=== PATIENT | male | born 1965 | race Caucasian/White ===

== ENCOUNTER 2017-03-12 09:30 | Emergency (ER) | payer BC ==
--- NOTE | 2017-03-12 10:08 | UC ---
Back Pain HPI - HPI Summary HPI Summary: 51 y/o male presents to the urgent care c/o mid lower back pain since yesterday. He went to work and pain increase with movement, specially bending. Today Pain now is 10/10, with movement and 6/10 constant at rest w/o any radiation and more spasm. Pt took advil 400mg PO last night which helped. Pt doesn't recall any injury. Pt denies fever, numbness or tingling over the lower extremities, denies urinary or fecal incontinence, saddle anesthesia, SOB , chest pain, N/V/D. - History of Current Complaint Chief Complaint: UCBackPain Stated Complaint: BACK PAIN Time Seen by Provider: 03/12/17 10:07 Hx Obtained From: Patient Onset/Duration: Gradual Onset, Lasting Days - 1 day, Still Present Timing: Constant, Lasting Days - 1 day Severity Initially: Moderate Severity Currently: Severe Pain Intensity: 10 - w/ movement Pain Scale Used: 0-10 Numeric Back Pain: Is Discrete @ - Lower back Character: Spasmodic Aggravating: Movement, Lifting, Bending, Nothing - sitting Associated Signs And Symptoms: Positive: Pain with Weight Bearing. Negative: Swelling, Redness, Bruising, Fever, Weakness, Numbness, Tingling, Abdominal Pain , Flank Pain, Bladder Incontinence, Bowel Incontinence - Risk Factors AAA Risk Factors: Negative TAD Risk Factors: Negative Cauda Equina Risk Factors: Negative Epidural Abscess Risk Factors: Negative - Allergies/Home Medications Allergies/Adverse Reactions: Allergies Allergy/AdvReac Type Severity Reaction Status Date / Time No Known Allergies Allergy Verified 03/12/17 09:36 PMH/Surg Hx/FS Hx/Imm Hx Previously Healthy: Yes Cardiovascular History: Hypertension - diet control - Surgical History Surgical History: None - Family History Known Family History: Positive: Hypertension, Diabetes - Social History Alcohol Use: Occasionally Substance Use Type: None Smoking Status (MU): Former Smoker When Did the Patient Quit Smoking/Using Tobacco: 1 year Review of Systems Constitutional: Negative Skin: Negative Eyes: Negative ENT: Negative Respiratory: Negative Cardiovascular: Negative Gastrointestinal: Negative Genitourinary: Negative Motor: Negative Neurovascular: Negative Musculoskeletal: Other: - Lower back pain with spasm Neurological: Negative Psychological: Negative Is Patient Immunocompromised?: No All Other Systems Reviewed And Are Negative: Yes Physical Exam Triage Information Reviewed: Yes Appearance: Well-Appearing, Well-Nourished, Pain Distress - mild pain distress standing up unabe to sit, Thin Vital Signs: Initial Vital Signs Temp 98.5 F 03/12/17 09:37 Pulse 78 03/12/17 09:37 Resp 16 03/12/17 09:37 BP 126/100 03/12/17 09:37 Vital Signs Reviewed: Yes Eye Exam: Normal Eyes: Positive: Conjunctiva Clear - PERRLA, EOMI fundi grossly normal ENT Exam: Normal ENT: Positive: Normal ENT inspection, Hearing grossly normal, Pharynx normal, TMs normal Neck exam: Normal Neck: Positive: Supple, Nontender, No Lymphadenopathy Respiratory Exam: Normal Respiratory: Positive: Chest non-tender, Lungs clear, Normal breath sounds, No respiratory distress Cardiovascular Exam: Normal Cardiovascular: Positive: RRR, No Murmur Abdominal Exam: Normal Abdomen Description: Positive: Nontender, No Organomegaly, Soft. Negative: CVA Tenderness (R), CVA Tenderness (L) Bowel Sounds: Positive: Present Musculoskeletal: Positive: Strength Intact, Other: - BACK: Patient walked into the urgent care room with symmetric ambulation, No signs of limping, antalgic, able to bear weight. No signs of trauma, No masses palpated. Point tenderness at the level of L3-L4, B/L paraspinal muscle tenderness at the same level. No CVAT, no flank ecchymosis . No sacroiliac notch tenderness, No saddle anesthesia.ROM: limited flexion/ extension/ lateral bending and rotation due to pain, Straight Leg Raise: unable to performe pt unable to lay on examining table due to pain. Patellar reflexes: brisk, symmetric Muscle strength lower extremities. Dorsiflexion/ plantar flexion of ankles. Heel/ toe walk. Lower extremities: Femoral, popliteal, posterior tibial, and dorsalis pedis pulses WNL. Pt decline DREW. Neurological Exam: Normal Psychological Exam: Normal Skin Exam: Normal Back Pain Course/Dx - Course Course Of Treatment: 51 y/o male presents to the urgent care c/o mid lower back pain since yesterday. He went to work and pain increase with movement, specially bending. Today Pain now is 10/10, with movement and 6/10 constant at rest w/o any radiation and more spasm. Pt took advil 400mg PO last night which helped. Pt doesn't recall any injury. Pt denies fever, numbness or tingling over the lower extremities, denies urinary or fecal incontinence, saddle anesthesia, SOB, chest pain, N/V/D. Hx obtained. UA ordered: negative. Pt given toradol Im inj for pain, Lumbosacral X-ray ordered: Impression:mild degenerative disc disease at L5-S1. Pt given Toradol Im inj for pain. Pt felt better, pain decrease. Pt with Back spasm. Pt Rx Flexeril Po and Naproxen PO for pain. I discussed all the findings and test results with the patient. Patient was instructed to return to the urgent care immediately if any of the symptoms return or worsens. Plan of care was discussed with the patient and understands and agrees. All questions were answered at patient satisfaction. Pt given PT and Orthopedic referral for f/u in 1 weeks if not improvement of symptoms. There were no further complaints or concerns. Pt left the clinic ambulating, A&OX3. - Differential Dx/Diagnosis Differential Diagnosis/HQI/PQRI: Arthritis, Fracture, Herniated Disc, Renal Colic, Strain, Sprain, Other - back spasm Provider Diagnoses: 1- Acute lower back pain with back spasm Discharge - Discharge Plan Condition: Stable Disposition: HOME Prescriptions: Cyclobenzaprine TAB* [Flexeril 10 MG TAB*] 10 mg PO TID PRN #15 tab PRN Reason: Spasms - Back Naproxen TAB* [Naprosyn 250 mg TAB*] 500 mg PO Q8H PRN #30 tab PRN Reason: Pain Patient Education Materials: Acute Low Back Pain (ED) Forms: *Work Release Referrals: [facility] [Outside] Evelio Lagunas MD [Medical Doctor] - 7 Days No Primary Care Phys,NOPCP [Primary Care Provider] - 7 Days Additional Instructions: 1-Please take Flexeril PO to alleviate back spasm. Wear a back support and avoid strenuous exercise, heavy lifting, or bending. Avoid driving 2-Please take Naproxen PO q6-8hrs prn as instructed after meals to alleviate pain and swelling. 3-If symptoms do not improve or worsen please return to the urgent care or f/u with your PCP or orthopedic in 1 week for further evaluation and treatment. 4- See PT referral for further evaluation and treatment.
[2017-03-12] MEDS ORDERED: Ketorolac INJ* 60 MG/2 ML VIAL IM ONE (10:26)
--- NOTE | 2017-03-12 11:45 | RAD ---
INDICATION: Sudden onset back pain after work the previous day COMPARISON: Similar radiograph May 04, 2010 TECHNIQUE: 5 views of the lumbar spine were obtained. FINDINGS: The vertebra are in normal alignment. No fracture is seen. Mild degenerative changes include loss of intervertebral disc height at multiple levels, most severely affecting L5/S1. IMPRESSION: Mild degenerative changes as described above not substantially changed since May 04, 2010 radiograph.
[2017-03-12 11:47] VITALS: BP 116/76
== END 2017-03-12 12:06 | disposition home or self-care (01) ==
LOC: UCEAST 09:30
DX: M62.830 Muscle spasm of back (principal); Z87.891 Personal history of nicotine dependence
CPT/HCPCS: 72110; 81003; 96372; 99212; G0463; J1885

== ENCOUNTER 2017-08-14 09:49 | Emergency (ER) | payer SELFPAY ==
[2017-08-14 12:59] VITALS: BP 124/75
--- NOTE | 2017-08-14 13:02 | UC ---
Laceration HPI - HPI Summary HPI Summary: 52 y/o female presents to the urgent care c/o Rt thumb laceration s/p cutting his thumb w/ metal at work this morning around 0730AM. Pt doesn't recall last Tetanus Shot. Bleeding stopped w/ pressure. Pain is 5/10. Pt can move thumb w/o any difficulty. Pt is Rt hand dominant. Pt denies numbness or tingling over the RT hand, SOb, chest pain, abdominal pain, N/V/D . - History Of Current Complaint Chief Complaint: UCLaceration Stated Complaint: THUMB LACERATION Time Seen by Provider: 08/14/17 12:57 Hx Obtained From: Patient Laceration Location: Finger - RT thumb laceration Mechanism Of Injury: Sharp Trauma Onset/Duration: Lasting Hours - 5hrs Severity: Mild Pain Intensity: 3 Pain Scale Used: 0-10 Numeric Aggravating Factors: Movement Related History: Occupational Injury, Dominant Hand Right - Allergies/Home Medications Allergies/Adverse Reactions: Allergies Allergy/AdvReac Type Severity Reaction Status Date / Time No Known Allergies Allergy Verified 08/14/17 10:47 Home Medications: Home Medications Glucosamine Sulfate Dipot Chlr [Glucosamine] 1 tab PO DAILY 08/14/17 [History Confirmed 08/14/17] Multivit-Mins/Iron/Folic/Lycop [Centrum Men's Tablet] 1 tab PO DAILY 08/14/17 [ History Confirmed 08/14/17] PMH/Surg Hx/FS Hx/Imm Hx Previously Healthy: Yes Cardiovascular History: Hypertension - diet control - Surgical History Surgical History: Yes Surgery Procedure, Year, and Place: testicular torsion - Family History Known Family History: Positive: Hypertension, Diabetes - Social History Occupation: Employed Full-time Lives: With Family Alcohol Use: Occasionally Substance Use Type: Marijuana Smoking Status (MU): Former Smoker When Did the Patient Quit Smoking/Using Tobacco: 1 year - Immunization History Most Recent Tetanus Shot: Out of date Review of Systems Constitutional: Negative Skin: Other - RT thumb laceration Eyes: Negative ENT: Negative Respiratory: Negative Cardiovascular: Negative Gastrointestinal: Negative Genitourinary: Negative Motor: Negative Neurovascular: Negative Musculoskeletal: Other: - RT thumb pain s/p laceration Neurological: Negative Psychological: Negative Is Patient Immunocompromised?: No All Other Systems Reviewed And Are Negative: Yes Physical Exam Triage Information Reviewed: Yes Vital Signs: Initial Vital Signs Temp 99.3 F 08/14/17 10:42 Pulse 61 08/14/17 10:42 Resp 20 08/14/17 10:42 BP 117/76 08/14/17 10:42 Pulse Ox 100 08/14/17 10:42 - Additional Comments Vital Signs Reviewed: Yes General: well developed, well nourished male sitting in the examining table w/ o any apparent distress Eye Exam: Normal Eyes: Positive: Conjunctiva Clear - PERRLA, EOMI, fundi grossly normal ENT: Positive: Normal ENT inspection, Hearing grossly normal, Pharynx normal, TMs normal Neck: Positive: Supple, Nontender, No Lymphadenopathy Respiratory: Positive: Chest non-tender, Lungs clear, Normal breath sounds, No respiratory distress Cardiovascular: Positive: RRR, No Murmur, Pulses Normal, Brisk Capillary Refill Abdomen Description: Positive: Nontender, No Organomegaly, Soft. Negative: CVA Tenderness (R), CVA Tenderness (L) Bowel Sounds: Positive: Present Musculoskeletal: Positive: Strength Intact, ROM Intact, No Edema Neurological: Positive: Alert, Muscle Tone Normal Psychological Exam: Normal Skin: Positive:Lateral side of RT Thumb at the level pf DIPJ w/ a superficial linear laceration about 1.0cm in size, bleeding stopped, mild tenderness on palpation, no swelling observed. FROM of RT Thumb adn all RT hand, sensation intact, capillary refill brisk, and pulses WNL. Laceration Repair - Laceration Repair 1 Description: Linear Laceration Size After Repair: Length (cm) - 1.0cm Modified For Repair: No Type Injection: Local Anesthesia Used: 1.0% Lido - 2ml Cleansing Completed Via Routine Prep: Yes Irrigation With Pressure Irrigation Device: Yes Closure Material: Sutures - 5 sutures Closure Method: Single Layer Suture Of: Skin, SQ Suture Type: Nylon - 5.0 Laceration Course/Dx - Course/Dx Course Of Treatment: 52 y/o female presents to the urgent care c/o Rt thumb laceration s/p cutting his thumb w/ metal at work this morning around 0730AM. Pt doesn't recall last Tetanus Shot. Bleeding stopped w/ pressure. Pain is 5/ 10. Pt can move thumb w/o any difficulty. Pt is Rt hand dominant. Pt denies numbness or tingling over the RT hand, SOb, chest pain, abdominal pain, N/V/D. Hx obtained. Pt w/ Lateral side of RT Thumb at the level pf DIPJ w/ a superficial linear laceration about 1.0cm in size, bleeding stopped, mild tenderness on palpation, no swelling observed on examiantion. LACERATION PROCEDURE NOTE: . Copious irrigation was done with saline by the nurse and the wound explored. There was no FB or deep structure injury noted. FROM of left forearm. procedure was explained and consent obtained, Timeout performed. The wound was anesthetized with 2 mL of 1% lido with good anesthesia. Sterile drape and prep were don. There were 5 sutures with 5.0 nylon type of suture. The length of the wound after closure was 1.0cm. No debridement done. Wound was covered bacitracin with sterile non adherent dressing. The Pt tolerated the procedure well without adverse effects. Neurovascular intact and FROM. Tdap ordered and applied by nurse. Pt advised to f/u suture removal in 10 days and if any signs of infection develop to immediately return to the urgent care of PCP for further management and treatment. Pt understood and agreed and left the clinic ambulating A&Ox3. - Differential Dx - Laceration/Wound Differental Diagnoses: Abrasion, Laceration, Puncture Wound, Tendon Laceration Provider Diagnoses: 1-Right thumb laceration repair Discharge - Discharge Plan Condition: Stable Disposition: HOME Prescriptions: Bacitracin OINTMENT* 1 applic TOPICAL BID #1 tube Patient Education Materials: Care For Your Stitches (DC), Laceration (ED) Referrals: Mitchell Lowry, PROSTHODONTIST [Primary Care Provider] - 1 Week Additional Instructions: 1-Please apply topical antibiotic over the wound. Keep wound clean and dry 2- F/u suture removal in 10-14 days days w/ your PCP or here at the urgent care. 3-Take Ibuprofen or Tylenol PO q6-8hrs prn for pain or swelling. 4- If you develop fever or redness around your finger despite the antibiotic please go to the ER immediately or return to the Urgent care.
[2017-08-14] MEDS ORDERED: Lidocaine 1% MPF* 2 ML VIAL INJ ONE (13:12)
[2017-08-14] MEDS ORDERED: Tetan/Diph/Pertus SYR(Tdap)* 0.5 ML SYR(BOOSTRIX) use SYR IM ONE (13:12)
== END 2017-08-14 14:10 | disposition home or self-care (01) ==
LOC: UCEAST 09:49
DX: S61.011A Laceration without foreign body of right thumb without damage to nail, initial encounter (principal); W26.8XXA Contact with other sharp object(s), not elsewhere classified, initial encounter; Y93.89 Activity, other specified; Y92.9 Unspecified place or not applicable; Y99.0 Civilian activity done for income or pay; Z23 Encounter for immunization; I10 Essential (primary) hypertension; F12.90 Cannabis use, unspecified, uncomplicated; Z87.891 Personal history of nicotine dependence
CPT/HCPCS: 12001; 90471; 90715; 99212; G0463

== ENCOUNTER 2017-09-24 12:48 | Emergency (ER) | payer BC ==
[2017-09-24 13:00] VITALS: BP 115/62
[2017-09-24] MEDS ORDERED: Ibuprofen TAB* 400 MG PO ONE (14:02)
--- NOTE | 2017-09-24 14:11 | UC ---
Back Pain HPI - History of Current Complaint Hx Obtained From: Patient Onset/Duration: Gradual Onset - had constipation for past week. that has resolved but started to have bilateral lower back pain that radiates to bilateral hips and lower abd over past few days. Today at work it got worse. 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 Negative: Numbness, Tingling, Bladder Incontinence, Bowel Incontinence <Art Oneill - Last Filed: 09/24/17 14:06> <Miguelina Franz - Last Filed: 09/24/17 18:04> - History of Current Complaint Chief Complaint: UCAbdominalPain Stated Complaint: ABD PAIN Time Seen by Provider: 09/24/17 13:49 - Allergies/Home Medications Allergies/Adverse Reactions: Allergies Allergy/AdvReac Type Severity Reaction Status Date / Time No Known Allergies Allergy Verified 09/24/17 13:00 Home Medications: Home Medications Ibuprofen [Goodsense Ibuprofen] 200 mg PO 09/24/17 [History] PMH/Surg Hx/FS Hx/Imm Hx Previously Healthy: Yes - Surgical History Surgical History: Yes Surgery Procedure, Year, and Place: testicular torsion - Family History Known Family History: Positive: Hypertension, Diabetes - Social History Occupation: Employed Full-time - Bakery Lives: With Family Alcohol Use: Rare Substance Use Type: Marijuana Substance Use Comment - Amount & Last Used: daily Smoking Status (MU): Former Smoker When Did the Patient Quit Smoking/Using Tobacco: 1 year - Immunization History Most Recent Tetanus Shot: Out of date <Art Oneill - Last Filed: 09/24/17 14:06> Review of Systems Constitutional: Negative Respiratory: Negative Cardiovascular: Negative Gastrointestinal: Abdominal Pain Genitourinary: Negative Neurovascular: Negative Musculoskeletal: Other: - low back pain Psychological: Negative All Other Systems Reviewed And Are Negative: Yes <Art Oneill - Last Filed: 09/24/17 14:06> Physical Exam Triage Information Reviewed: Yes Appearance: Well-Appearing, No Pain Distress, Well-Nourished Vital Signs: Initial Vital Signs Temp 99.2 F 09/24/17 12:54 Pulse 64 09/24/17 12:54 Resp 18 09/24/17 12:54 BP 115/62 09/24/17 12:54 Pulse Ox 99 09/24/17 12:54 Vital Signs Reviewed: Yes Respiratory Exam: Normal Cardiovascular Exam: Normal Abdominal Exam: Normal Abdomen Description: Positive: Nontender, No Organomegaly, Soft. Negative: CVA Tenderness (R), CVA Tenderness (L), Distended, Guarding, McBurney's Point Tenderness Bowel Sounds: Positive: Present Musculoskeletal Exam: Normal Musculoskeletal: Positive: Strength Intact, ROM Intact - some pain with full flexion Neurological Exam: Normal Psychological Exam: Normal Skin Exam: Normal Skin: Negative: rashes <Art Oneill - Last Filed: 09/24/17 14:06> Vital Signs: Initial Vital Signs Temp 99.2 F 09/24/17 12:54 Pulse 64 09/24/17 12:54 Resp 18 09/24/17 12:54 BP 115/62 09/24/17 12:54 Pulse Ox 99 09/24/17 12:54 <Miguelina Franz - Last Filed: 09/24/17 18:04> Back Pain Course/Dx - Differential Dx/Diagnosis Differential Diagnosis/HQI/PQRI: Renal Colic, Strain, Sprain, Other - acute abd Provider Diagnoses: low back strain <Art Oneill - Last Filed: 09/24/17 14:06> Discharge - Sign-Out/Discharge Documenting (check all that apply): Discharge - Billing Disposition and Condition Condition: GOOD Disposition: HOME <Art Oneill - Last Filed: 09/24/17 14:06> - Billing Disposition and Condition Condition: GOOD Disposition: HOME <Miguelina Franz - Last Filed: 09/24/17 18:04> - Discharge Plan Condition: Good Disposition: HOME Patient Education Materials: Low Back Strain (ED) Forms: *Work Release Referrals: Mitchell Lowry [employer] PERSON [Primary Care Provider] - 2 Days (if no improvement) Additional Instructions: apply warm packs to low back use ibuprofen 800mg every 8 hours for pain do ROM and core muscle exercises to strengthen back return if symptoms worsen Attestation Statement User Type: Provider - I was available for consult. This patient was seen by the HUSSEIN. The patient was not presented to, seen by, or examined by me. Madelyn <Miguelina Franz - Last Filed: 09/24/17 18:04>
== END 2017-09-24 14:23 | disposition home or self-care (01) ==
LOC: UCEAST 12:48
DX: S39.012A Strain of muscle, fascia and tendon of lower back, initial encounter (principal); X58.XXXA Exposure to other specified factors, initial encounter; Y92.9 Unspecified place or not applicable; Z87.891 Personal history of nicotine dependence
CPT/HCPCS: 81003; 99212; A9270-GY; G0463

== ENCOUNTER 2019-05-17 10:40 | Emergency (ER) | payer BC, OTHER ==
[2019-05-17 11:10] VITALS: BP 125/81
--- NOTE | 2019-05-17 11:44 | UC ---
Upper Extremity HPI - HPI Summary HPI Summary: 53-year-old male who got his left arm caught in a bagel roller while at work today. He has an abrasion to the forearm and wrist area. Last tetanus unknown. - History of Current Complaint Chief Complaint: UCUpperExtremity Stated Complaint: L ARM INJURY Time Seen by Provider: 05/17/19 11:36 Hx Obtained From: Patient ?: No Onset/Duration: Sudden Onset Severity Initially: Moderate Severity Currently: Mild Pain Intensity: 9 Character: Dull, Aching Aggravating Factor(s): Movement Alleviating Factor(s): Rest Associated Signs And Symptoms: Positive: Other - Abrasion wrist and forearm. - Allergies/Home Medications Allergies/Adverse Reactions: Allergies Allergy/AdvReac Type Severity Reaction Status Date / Time No Known Allergies Allergy Verified 05/17/19 11:10 PMH/Surg Hx/FS Hx/Imm Hx Previously Healthy: Yes Cardiovascular History: Hypertension - Surgical History Surgical History: Yes Surgery Procedure, Year, and Place: testicular torsion - Family History Known Family History: Positive: Hypertension, Diabetes - Social History Alcohol Use: Rare Substance Use Type: Marijuana Substance Use Comment - Amount & Last Used: daily Smoking Status (MU): Former Smoker When Did the Patient Quit Smoking/Using Tobacco: 1 year - Immunization History Most Recent Tetanus Shot: Out of date Review of Systems All Other Systems Reviewed And Are Negative: Yes Skin: Positive: Rash - Abrasions to left wrist and forearm. Is Patient Immunocompromised?: No Physical Exam Triage Information Reviewed: Yes Appearance: Well-Appearing, No Pain Distress, Well-Nourished Vital Signs: Initial Vital Signs Temp 98.6 F 05/17/19 11:07 Pulse 63 05/17/19 11:07 Resp 16 05/17/19 11:07 BP 125/81 05/17/19 11:07 Pulse Ox 100 05/17/19 11:07 Vital Signs Reviewed: Yes Musculoskeletal: Positive: Strength Intact, ROM Intact, Other: - Good peripheral pulses neuro sensation capillary refill. Good finger strength with flexion extension against resistance. Hand nontender. Wrist is mildly tender on palpation as well as distal forearm. No deformity is noted. Neurological: Positive: Alert, Muscle Tone Normal Psychological Exam: Normal Skin: Positive: Other - Patient has numerous abrasions to left wrist and forearm. Upper Extremity Course/Dx - Course Course Of Treatment: Left wrist x-ray:FINDINGS: BONE DENSITY: Normal. BONES: There is a minimally displaced fracture of the distal ulnar metadiaphysis. JOINTS: There is no arthropathy. ALIGNMENT: There is no dislocation. SOFT TISSUES: Unremarkable. OTHER FINDINGS: None. IMPRESSION: MINIMALLY DISPLACED FRACTURE OF THE DISTAL ULNA. Left forearm x-ray:FINDINGS: BONE DENSITY: Normal. BONES: There is a minimally displaced fracture of the distal ulnar metadiaphysis. JOINTS: There is no arthropathy. ALIGNMENT: There is no dislocation. SOFT TISSUES: Unremarkable. OTHER FINDINGS: None. IMPRESSION: MINIMALLY DISPLACED FRACTURE OF THE DISTAL ULNA. After discussion with Dr. Sharma, I consulted with Dr. Webster, orthopedist. A cock-up splint is placed by the nursing staff and I checked the circulation and neuro sensation which was normal. The patient is to follow-up at Dr. Webster's office at 1:00 PM today for further treatment. He was given Motrin 600 mg by mouth for pain. - Differential Dx/Diagnosis Provider Diagnosis: Fracture of left ulna Discharge ED - Sign-Out/Discharge Documenting (check all that apply): Patient Departure All imaging exams completed and their final reports reviewed: Yes - Discharge Plan Condition: Fair Disposition: HOME Patient Education Materials: Arm Fracture in Adults (ED) Referrals: Gentry Campbell MD [Medical Doctor] - Mitchell Lowry NP [Primary Care Provider] - Additional Instructions: Follow-up with Dr. Webster at [address] [place] [address] Otoniel Singleton at 1:00. - Billing Disposition and Condition Condition: FAIR Disposition: Home
[2019-05-17] MEDS ORDERED: Tetan/Diph/Pertus SYR(Tdap)* 0.5 ML SYR(BOOSTRIX) use SYR contains LATEX IM ONE (11:47)
[2019-05-17] MEDS ORDERED: Ibuprofen TAB* 600 MG PO ONE (12:13)
== END 2019-05-17 12:45 | disposition home or self-care (01) ==
LOC: UCEAST 10:40
DX: S52.602A Unspecified fracture of lower end of left ulna, initial encounter for closed fracture (principal); I10 Essential (primary) hypertension; Z87.891 Personal history of nicotine dependence; W31.89XA Contact with other specified machinery, initial encounter; Y92.9 Unspecified place or not applicable
CPT/HCPCS: 90471; 90715; 99212; A9270-GY; G0463

== ENCOUNTER → 2019-05-25 11:38 | Day surgery (SDC) | payer OTHER ==
[~2019-05-25 11:38] MED LIST: Acetaminophen IV 1GM/100ML * 1,000 MG/100 ML VIAL IVPB ONE; Dexamethasone IV* 4 MG/ML 1 ML (4 MG) ONE; Lidocaine 2% PF * 5 ML VIAL ONE; Metoprolol Tartrate TAB* 25 MG ONE; Metoprolol Tartrate TAB* 25 MG PO ONE; Midazolam* 1 MG/ML 2 ML VIAL (2 MG) ONE; Naloxone* 0.4 MG/ML 1 ML VIAL IV PRN; Ondansetron INJ* 2 MG/ML VIAL IV PRN; Propofol* 10 MG/ML 20 ML BTL ONE; Sodium Citrate/Citric Acid* 15 ML UDC ONE; ceFAZolin 2 GM in NS PREMIX(*) 2 GM/100 ML BAG IVPB ONE; fentaNYL* 50 MCG/ML 2 ML VIAL (100 MCG VIAL) ONE
[2019-05-25 17:54] LABS: BUN/Creatinine Ratio 15.4 (8-20); Calcium 8.6 mg/dL (8.6-10.3); EGFR African American 105.1 (>60); EGFR Non-African American 86.8 (>60); Potassium 3.8 mmol/L (3.5-5.0)
[2019-05-25] MEDS: fentaNYL* 50 MCG/ML 2 ML VIAL (100 MCG VIAL) IV PRN ×5 (18:05→18:45)
[2019-05-25 18:27] LABS: Magnesium 1.5 mg/dL (1.9-2.7)
--- NOTE | 2019-05-25 19:11 | CONS ---
CC: Mitchell Lowry NP; Dr. Michael Montemayor; Dr. Campbell * CONSULTATION REPORT: DATE OF CONSULT: 05/25/19 - [facility] PRIMARY CARE PROVIDER: Mitchell Lowry NP. REQUESTING PHYSICIAN: Dr. Michael Montemayor from anesthesia. ORTHOPEDIC SURGEON: Dr. Campbell REASON FOR CONSULTATION: Tachycardia, possibility of atrial fibrillation. CHIEF COMPLAINT: "My left arm hurts." HISTORY OF PRESENT ILLNESS: Johnathan Smith is a 54-year-old male with history of "borderline hypertension" not treated as an outpatient who presented to the hospital for left distal radius ORIF performed by Dr. Campbell today under general anesthesia. The patient stated that on 05/24/19 his hand was caught in a bagel roller at one of the local [employer]. Subsequently, he suffered a fracture of his left arm and he came in to have it repaired today by Dr. Campbell. He underwent general anesthesia. The ORIF was performed. Intraoperatively, the patient was noted to have multiple PACs and occasional PVCs. Postoperatively, his heart rate was irregular and tachycardia. On EKG, it showed sinus rhythm with multiple PACs and occasional PVC. The patient currently complains of no chest pain or shortness of breath or complains of postoperative left arm pain. He stated that he never had heart trouble. He denies any palpitations in the past or right now. PAST MEDICAL HISTORY: 1. History of testicular torsion surgery in 1973. 2. History of borderline hypertension, not treated. PAST SURGICAL HISTORY: Left radial ORIF performed today by Dr. Campbell. MEDICATIONS AT HOME: Include: 1. Baclofen 10 mg t.i.d. p.r.n. 2. Multivitamin 1 tablet daily. 3. Ibuprofen on a p.r.n. basis. 4. Glucosamine 2 tablets in the evening daily. FAMILY HISTORY: Reviewed and noncontributory. SOCIAL HISTORY: The patient lives alone. 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 He smokes " a lot of pot." He used to smoke cigarettes, stopped 4 years ago. He has a history of smoking from the time when he was 15 years old till the time when he was 50 at least 1 pack per day. He denies any significant alcohol use and he stated that he drinks alcohol rarely. As his surrogate he names his mother, Vivienne Smith. REVIEW OF SYSTEMS: Please see history of present illness. Please also note that the patient is still fairly sedated after general anesthesia, but denies any chest pain, shortness of breath, or palpitations. PHYSICAL EXAM: Blood pressure of 135/87, heart rate of 97 and irregular, respiratory rate 16, oxygen saturation 98% on 4 L of oxygen nasal cannula, temperature of 98.1. General: The patient is a very pleasant 54-year-old male who is in no acute distress. The patient is alert and oriented x3 and frequently falling asleep during my evaluation due to anesthesia. HEENT: Head: Atraumatic, normocephalic. Eyes: Pupils are equal and reactive to light and accommodation. Oropharynx is clear. Mucosa moist. Neck: Supple. No JVD. No bruits bilaterally. Cardiovascular: Irregular rhythm. No murmur. Respiratory : Clear to auscultation bilaterally. Abdomen: Soft, nontender. Bowel sounds are present in all 4 quadrants. Extremities: There is no edema. Pulses are 2 + bilaterally. No clubbing or cyanosis. Please note that the left forearm is placed in a postsurgical cast. DIAGNOSTIC STUDIES/LAB DATA: Laboratory data showed sodium of 139, potassium 3.8, chloride 106, carbon dioxide 28, BUN 14, creatinine 0.91, magnesium is pending at the time of dictation. White blood cell count of 7.8, hemoglobin of 14.1, hematocrit 42, and platelets of 200. The patient's EKG showed sinus tachycardia with heart rate of 99 beats per minute with multiple PACs and PVCs. ASSESSMENT AND PLAN: The patient has asymptomatic premature atrial contractions and premature ventricular contractions postoperatively. He does not complain of any chest pain or shortness of breath. He does have left postoperative arm pain. At this point, magnesium is still pending at the time of dictation. Presuming that this is unremarkable, the patient can be discharged as planned by Dr. Campbell from PACU. I would recommend starting the patient on metoprolol tartrate 12.5 mg p.o. b.i.d. and for the patient to follow up with his primary care provider in approximately 2 to 5 days. TIME SPENT: Approximately 55 minutes were spent on the patient's consultation, more than half that time was spent [id number] with this patient during the interview and evaluation in the postoperative unit. Thank you very much for allowing our service to see your patient in consultation. Please let me know if I can help any further. [id number]/[facility] #: [id number]
[2019-05-25 20:19] VITALS: BP 138/64
--- NOTE | 2019-05-25 23:18 | OP ---
OPERATIVE NOTE: DATE OF OPERATION: 05/25/19 DATE OF : 65 SURGEON: Gentry Campbell MD INDUSTRIAL ENGINEER: LASHAUN Hartley A physician assistant broker was required for the length of the procedure for assistance with patient positi oning, retraction, instrumentation, and closure. ANESTHESIOLOGIST: Michael Montemayor DO ANESTHESIA: General anesthesia. PRE-OP DIAGNOSIS: Left distal ulnar fracture, displaced. POST-OP DIAGNOSIS: Left distal ulnar fracture, displaced. OPERATIVE PROCEDURE: Open reduction internal fixation, left distal ulnar fracture. ANTIBIOTICS: Ancef 2 g IV. IV FLUIDS: See anesthesia note. [id number] TIME: 83 minutes. TOURNIQUET TIME: 83 minutes at 250 mmHg, left upper arm. SPECIMEN: None. IMPLANTS: [employer] Modular Mini Fragment LCP system plate, 12 hole with 4 holes removed making it an 8-hole plate. I placed 2.7 mm screws, locking and nonlocking through this 2.7 mm plate. COMPLICATIONS: None. ESTIMATED BLOOD LOSS: Minimal. INDICATIONS FOR THE PROCEDURE: The patient is a 54-year-old man, injured 8 days previous at work on 05/17/19. Past history of tobacco use. Abrasions not adjacent to the fracture, small. X-ray showed 12 degrees of angulation at the fracture site and 50% translation. I discussed the nonoperative and operative treatment with the patient and he opted for surgery. I discussed the risks and potential complications of the surgery with the patient including nerve injury and need for subsequent removal of plate if it is painful or for other reasons. DESCRIPTION OF PROCEDURE: In preoperative holding, the patient signed a written consent. Operative extremity was marked in the preoperative holding. The patient was taken back to the operating room, placed supine on operating room table, sedated and intubated. The patient was kept on a stretcher. Hand table was applied to the stretcher. Left upper extremity was prepped and draped. Surgical time -out was performed. An Esmarch was applied and the tourniquet was elevated. Skin incision was made o corinne the ulnar aspect of the distal forearm. I dissected down through subcutaneous tissue carefully. I tied off with suture 1 transverse vessel. Eventually, I identified the dorsal cutaneous branch of the ulnar nerve and that was not in the path of our dissection. The dorsal cutaneous branch of the ulnar nerve was volarly located in the distal aspect of the incision and it was not anywhere close to our main dissection. I dissected down to periosteum. I incised the periosteum along the length of the bone proximal and distal to the fracture site. I identified bone surface proximal and distal to fracture. I debrided fracture site with curettes and rongeur. I reduced bone with a variety of bone clamps. I sized several plates before deciding on the 2.7 mm p late, slightly malleable. I cut 4 holes of a 12-hole plate and contoured the plate slightly. I next applied it. I placed nonlocking screws, one each proximal and distal to the fracture site. X-ray i mages showed good reduction of fracture and good placement of hardware. I had the capacity to place 3 screws distal to the fracture site, and 3 to 4 screws proximal to the fracture site. I pulled the plate to bone distally with a nonlocking screw, which I replaced with a locking screw an d I filled the remainder of the plate with nonlocking and locking screws. I took final films that showed excellent reduction. Screw lengths appropriate. Irrigation. Closure of the periosteum with [id number] stitches using Vicryl 2- 0 suture. Closure of the subcutaneou s tissue with buried simple stitches using Vicryl 3-0 suture. Closure of the skin with a running sti tch using nylon 4-0 suture. Xeroform, 4x4s, sterile Webril, volar plaster slab splint placed and ove rwrapped with an Christiano bandage. The patient was awakened and extubated. Sling was applied. Anesthesia had been concerned about atrial fibrillation, noted by monitor at the start of our case, a t the induction of anesthesia. There was some arrhythmia activity noted or some abnormal activity no nitesh in preoperative holding a well. For this reason, we obtained a hospitalist consult in the PACU. Hospitalist ultimately decided that this was not atrial fibrillation and just some premature atrial complexes. The patient will receive narcotic as needed for pain control. Sling is just as needed. He will remain in the splint until followup, which will be 7 to 8 days postoperatively in clinic. [id number]/[facility] #: [id number]
== END | disposition home or self-care (01) ==
LOC: OR 11:38
PROVIDERS: ATTEND Orthopaedic Surgery
DX: S52.602A Unspecified fracture of lower end of left ulna, initial encounter for closed fracture (principal); Z87.891 Personal history of nicotine dependence; W31.82XA Contact with other commercial machinery, initial encounter; Y92.89 Other specified places as the place of occurrence of the external cause; Y99.0 Civilian activity done for income or pay
CPT/HCPCS: 36415; 76000; 80048; 83735; 93005; A9270-GY; C1713; C1776; J0690; J1100; J2250; J2704; J3010

== ENCOUNTER 2021-07-14 12:31 | Observation (INO) ==
[2021-07-14 13:02] LABS: ABS Basophils 0.1 10^3/ul (0-0.2); ABS Lymphocytes 1.7 10^3/ul (1.0-4.8); ABS Monocytes 1.3 10^3/ul (0-0.8); ABS Neutrophils 7.7 10^3/ul (1.5-7.7); Eosinophil % 0.3 %; Hematocrit 41 % (42-52); Hemoglobin 13.9 g/dL (14.0-18.0); Lymphocyte % 15.8 %; Mean Corpuscular HGB Conc 34 g/dL (31-36); Mean Corpuscular Hemoglobin 31 pg (27-31); Mean Corpuscular Volume 92 fL (80-94); Mean Platelet Volume 8.6 fL (7.4-10.4); Platelet Count 175 10^3/uL (150-450); Red Blood Count 4.47 10^6 /uL (4.18-5.48); Red Cell Distribution Width 14 % (10-15); White Blood Count 10.9 10^3/uL (3.5-10.8)
[2021-07-14 13:12] LABS: INR 1.18 (0.86-1.15)
[2021-07-14 13:19] LABS: Albumin/Globulin Ratio 1.3 (1-3); Calcium 9.1 mg/dL (8.6-10.3); Globulin 3.1 g/dL (2-4); Potassium 3.9 mmol/L (3.5-5.0); Total Bilirubin 1.4 mg/dL (0.2-1.0); Total Protein 7.1 g/dL (6.4-8.9); eGFR CKD-EPI 105.9 (>60)
[2021-07-14 13:21] LABS: Troponin I 0.01 ng/mL (<0.03)
[2021-07-14] MEDS ORDERED: Iohexol 350 (CONTRAST) 500 ML MDV IV ONE (15:17)
[2021-07-14 16:00] LABS: Magnesium 1.6 mg/dL (1.9-2.7)
[2021-07-14] MEDS ORDERED: Magnesium Sulfate IV 1GM/100ML 1 GM/100 ML BAG IV ONE (16:05)
[2021-07-14] MEDS ORDERED: Enoxaparin 80 MG/0.8 ML SYR SUBCUT ONE (17:00)
[2021-07-14] MEDS ORDERED: Magnesium Hydroxide LIQ 30 ML UDC PO PRN (18:58)
[2021-07-14] MEDS ORDERED: Albuterol HFA INHALER 8 gm MDI INH PRN (19:32)
[2021-07-14 20:01] LABS: Direct Bilirubin 0.2 mg/dL (0.03-0.18)
[2021-07-14] MEDS: Mometasone/Formoter 200/5 MDI INH SCH (23:51)
[2021-07-15 05:05] LABS: ABS Basophils 0.1 10^3/ul (0-0.2); ABS Eosinophils 0.1 10^3/ul (0-0.6); ABS Lymphocytes 1.9 10^3/ul (1.0-4.8); ABS Monocytes 1.1 10^3/ul (0-0.8); Hematocrit 42 % (42-52); Hemoglobin 14.2 g/dL (14.0-18.0); Lymphocyte % 23.1 %; Mean Corpuscular HGB Conc 34 g/dL (31-36); Mean Corpuscular Hemoglobin 31 pg (27-31); Mean Corpuscular Volume 92 fL (80-94); Mean Platelet Volume 8.8 fL (7.4-10.4); Nucleated Red Blood Cells % 0.1; Platelet Count 178 10^3/uL (150-450); Red Blood Count 4.54 10^6 /uL (4.18-5.48); Red Cell Distribution Width 14 % (10-15); White Blood Count 8.2 10^3/uL (3.5-10.8)
[2021-07-15 05:20] LABS: Calcium 8.9 mg/dL (8.6-10.3); Potassium 3.7 mmol/L (3.5-5.0); eGFR CKD-EPI 105.1 (>60)
[2021-07-15] MEDS ORDERED: Enoxaparin 80 MG/0.8 ML SYR SUBCUT SCH ×2 (06:00→18:00)
[2021-07-15 08:32] LABS: Magnesium 1.9 mg/dL (1.9-2.7)
[2021-07-15] MEDS: Mometasone/Formoter 200/5 MDI INH SCH (08:33)
[2021-07-15 11:44] VITALS: BP 110/68
[2021-07-15 13:41] LABS: Albumin 3.7 g/dL (3.2-5.2); Albumin/Globulin Ratio 1.3 (1-3); Direct Bilirubin 0.2 mg/dL (0.03-0.18); Globulin 2.9 g/dL (2-4); Indirect Bilirubin 0.8 mg/dL (0.3-1.0); Total Protein 6.6 g/dL (6.4-8.9)
== END 2021-07-15 17:55 | disposition home or self-care (01) ==
LOC: EDHOLD 12:31 → ED 12:31 → MEDTELE 22:38
PROVIDERS: ADMIT Hospitalist; ATTEND Hospitalist

== ENCOUNTER 2023-09-23 10:05 | Inpatient (IN) ==
[2023-09-23] MEDS: HYDROcodone/ACETAMIN 5/325 mg TAB PO ONE (11:35)
[2023-09-23] MEDS: fentaNYL 100 mcg/2 ml 50 MCG/ML VIAL IV SLOW PU ONE (12:26)
[2023-09-23] MEDS: Ondansetron 4 mg VIAL 2 MG/ML 2 ml VIAL IV ONE (12:26)
[2023-09-23] MEDS ORDERED: Polyethylene Glycol 3350 17 GM PACKET PO PRN (12:48)
[2023-09-23] MEDS ORDERED: Senna TAB 8.6 mg TAB PO PRN (12:48)
[2023-09-23 13:31] LABS: ABS Basophils 0.1 10^3/uL (0.0-0.1); ABS Lymphocytes 1.6 10^3/uL (1.0-4.8); ABS Monocytes 0.7 10^3/uL (0.0-1.1); ABS Neutrophils 6.2 10^3/uL (1.5-7.6); ABS Nucleated RBC 0.02 10^3/ul; Eosinophil % 0.6 %; Hematocrit 41.7 % (38-53); Hemoglobin 14.3 g/dL (13.2-16.3); Lymphocyte % 18.8 %; Mean Corpuscular Hemoglobin 32.3 pg (27-33); Mean Corpuscular Hgb Conc 34.3 g/dL (31-36); Mean Corpuscular Volume 94.2 fL (80-97); Mean Platelet Volume 8.8 fL (7.5-11.2); Nucleated Red Blood Cells % 0.2 %/100WBC (0.0-0.8); Platelet Count 228 10^3/uL (150-450); Red Blood Count 4.43 10^6/uL (4.06-5.63); Red Cell Distribution Width 13.8 % (12-17); White Blood Count 8.6 10^3/uL (3.6-10.2)
[2023-09-23 13:36] LABS: INR 1.07 (0.83-1.13)
[2023-09-23 13:58] LABS: ALT 30 U/L (7-52); Albumin 4.1 g/dL (3.2-5.2); Albumin/Globulin Ratio 1.5 (1-3); Alkaline Phosphatase 76 U/L (35-149); Anion Gap 10 mmol/L (2-16); Blood Urea Nitrogen 17 mg/dL (6-24); CO2 Carbon Dioxide 29 mmol/L (22-32); Calcium 9.2 mg/dL (8.6-10.3); Chloride 99 mmol/L (101-111); Creatinine, Serum 0.83 mg/dL (0.67-1.17); Globulin 2.8 g/dL (2-4); Glucose 94 mg/dL (70-100); Sodium 138 mmol/L (135-145); Total Bilirubin 0.6 mg/dL (0.2-1.0); Total Protein 6.9 g/dL (6.4-8.9); eGFR CKD-EPI 101.4 (>60)
[2023-09-23] MEDS: Morphine 4 MG/ML VIAL (1 ml) IV ONE (16:13)
[2023-09-23] MEDS: Morphine 2 MG/ML SYRINGE IV PRN (16:29)
[2023-09-23] MEDS: Acetaminophen IV 1 GM/100ML 1,000 MG/100 ML BAG IV SCH (16:29)
[2023-09-23] MEDS: Mometasone/Formoter 200/5 MDI INH SCH (20:10)
[2023-09-23] MEDS: Enoxaparin 80 MG/0.8 ML SYR SUBCUT SCH (22:00)
[2023-09-24 06:16] LABS: ABS Basophils 0.1 10^3/uL (0.0-0.1); ABS Eosinophils 0.1 10^3/uL (0.0-0.5); ABS Lymphocytes 2.1 10^3/uL (1.0-4.8); ABS Monocytes 0.7 10^3/uL (0.0-1.1); ABS Neutrophils 3.9 10^3/uL (1.5-7.6); ABS Nucleated RBC 0.01 10^3/ul; Eosinophil % 1.3 %; Hematocrit 38.8 % (38-53); Lymphocyte % 30.7 %; Mean Corpuscular Hemoglobin 31.8 pg (27-33); Mean Corpuscular Hgb Conc 33.6 g/dL (31-36); Mean Corpuscular Volume 94.6 fL (80-97); Mean Platelet Volume 8.8 fL (7.5-11.2); Nucleated Red Blood Cells % 0.1 %/100WBC (0.0-0.8); Platelet Count 182 10^3/uL (150-450); Red Cell Distribution Width 13.7 % (12-17); White Blood Count 6.8 10^3/uL (3.6-10.2)
[2023-09-24] MEDS: Cholecalciferol (VIT D3) 1,000 unit TAB PO SCH (08:40)
[2023-09-25 05:29] LABS: Hematocrit 40.7 % (38-53); Hemoglobin 13.8 g/dL (13.2-16.3); Mean Corpuscular Hemoglobin 31.9 pg (27-33); Mean Corpuscular Volume 93.6 fL (80-97); Mean Platelet Volume 8.5 fL (7.5-11.2); Platelet Count 189 10^3/uL (150-450); Red Blood Count 4.35 10^6/uL (4.06-5.63); Red Cell Distribution Width 13.4 % (12-17); White Blood Count 7.9 10^3/uL (3.6-10.2)
[2023-09-25] MEDS ORDERED: fentaNYL 100 mcg/2 ml 50 MCG/ML VIAL ONE ×4 (07:46→10:43)
[2023-09-25] MEDS ORDERED: Midazolam 2 mg/2 ml VIAL 1 mg/ml 2 ml VIAL (2 mg) ONE (07:46)
[2023-09-25] MEDS ORDERED: Dexamethasone IV 4 MG/ML VIAL 1 ml VIAL ONE (07:47)
[2023-09-25] MEDS ORDERED: Ondansetron 4 mg VIAL 2 MG/ML 2 ml VIAL ONE (07:47)
[2023-09-25] MEDS ORDERED: Lidocaine 2% PF 5 ML VIAL ONE (07:47)
[2023-09-25] MEDS ORDERED: Phenylephrine IV 10 MG/ML 1 ml VIAL ONE (07:47)
[2023-09-25] MEDS ORDERED: Rocuronium 50 mg VIAL 10 mg/ml 5 ml VIAL (50 mg) ONE (07:47)
[2023-09-25] MEDS ORDERED: Propofol 10 MG/ML 20 ML BTL ONE ×2 (07:47→10:43)
[2023-09-25] MEDS ORDERED: Albuterol HFA INHALER 8 gm MDI INH ONE (08:07)
[2023-09-25] MEDS ORDERED: ceFAZolin 2 GM PREMIX 2 GM/50 ML BAG ONE (08:17)
[2023-09-25] MEDS ORDERED: Naloxone 0.4 mg VIAL 0.4 mg/ml 1 ml VIAL IV PRN (08:18)
[2023-09-25] MEDS ORDERED: Acetaminophen IV 1 GM/100ML 1,000 MG/100 ML BAG IV PRN (08:18)
[2023-09-25] MEDS ORDERED: HYDROmorphone 1 MG/1 ML SYRINGE IV PRN (08:18)
[2023-09-25] MEDS ORDERED: Ondansetron 4 mg VIAL 2 MG/ML 2 ml VIAL IV PRN ×2 (08:18→11:15)
[2023-09-25] MEDS ORDERED: fentaNYL 100 mcg/2 ml 50 MCG/ML VIAL IV PRN (08:18)
[2023-09-25] MEDS ORDERED: Glycopyrrolate IV 0.2 MG/ML 1 ML VIAL ONE (09:08)
[2023-09-25] MEDS ORDERED: Magnesium Hydroxide LIQ 30 ML UDC PO PRN (11:15)
[2023-09-25] MEDS ORDERED: Lactulose 30 ml UDC PO PRN (11:15)
[2023-09-25] MEDS ORDERED: Ondansetron ODT 4 mg TAB 4 MG TAB PO PRN (11:15)
[2023-09-25] MEDS ORDERED: Acetaminophen IV 1 GM/100ML 1,000 MG/100 ML BAG IV ONE (12:01)
[2023-09-25] MEDS: Lactated Ringers 1000 ml BAG 1,000 ML IV SCH (13:24)
[2023-09-25] MEDS: ceFAZolin 1 GM ADVAN 1 GM in NS 0.9% 50 ML 50 ML IVPB SCH (18:17)
[2023-09-25 20:10] LABS: Potassium Redraw 4.6 mmol/L (3.5-5.0)
[2023-09-25] MEDS: Magnesium Hydroxide LIQ 30 ML UDC PO SCH (21:39)
[2023-09-26 06:50] LABS: Hematocrit 36.6 % (38-53); Hemoglobin 12.2 g/dL (13.2-16.3); Mean Platelet Volume 8.8 fL (7.5-11.2); Platelet Count 173 10^3/uL (150-450)
[2023-09-26 07:01] LABS: Calcium 8.6 mg/dL (8.6-10.3); Creatinine, Serum 0.89 mg/dL (0.67-1.17); Potassium 4.7 mmol/L (3.5-5.0); eGFR CKD-EPI 99.3 (>60)
[2023-09-26] MEDS: Vitamin THERAPEUTIC TAB PO SCH (08:17)
[2023-09-26 09:56] VITALS: BP 115/78
== END 2023-09-26 14:40 | disposition home or self-care (01) | DRG 313 ==
LOC: ED 10:05 → EDHOLD 12:48 → SSU 14:46
PROVIDERS: ADMIT Hospitalist; ATTEND Hospitalist